=== PATIENT | male | born 2000 | race Caucasian/White ===

== ENCOUNTER 2023-01-04 14:06 | Emergency (ER) | payer SELFPAY ==
[~2023-01-04] VITALS: Ht 177.8 cm; Wt 81.6 kg
[2023-01-04] MEDS ORDERED: MELOXICAM15 MG PO ×2 (14:56→15:04)
== END 2023-01-04 15:13 | disposition home or self-care (01) ==
LOC: ED 14:06
DX: S93.401A Sprain of unspecified ligament of right ankle, initial encounter (principal); Z87.891 Personal history of nicotine dependence; X50.1XXA Overexertion from prolonged static or awkward postures, initial encounter; Y93.89 Activity, other specified; Y92.89 Other specified places as the place of occurrence of the external cause; Y99.8 Other external cause status